=== PATIENT | male | born 1985 ===

== ENCOUNTER → 2019-09-24 | Outpatient (REF) | payer OTHER, SELFPAY ==
[2019-09-24 14:51] LABS: SEMEN APPEARANCE OPAQUE (OPAQUE)
[2019-09-24 14:52] LABS: SEMEN VISCOSITY LIQUID (LIQUID); SEMEN VOLUME 2.5 ml (2.0-5.0); SEMEN pH 8.5 (7.0-8.0); SPERM CONCENTRATION 40.9 M/ml (>=15.0); WBC CONCENTRATION >1 M/ml (<=1 M/ml)
== END ==
LOC: M SFHCWAGY 14:04
PROVIDERS: ATTEND Obstetrics & Gynecology
DX: N46.9 Male infertility, unspecified (principal)